=== PATIENT | female | born 1955 | race Hispanic/Latino ===

== ENCOUNTER → 2017-08-18 | Outpatient (CLI) | payer BC ==
[~2017-08-18] MED LIST: CLONAZEPAM0.5 M1 PO; LORAZEPAM0.5 MG PO
--- NOTE | 2017-08-18 12:17 | Diagnostic Imaging Report ---
PROCEDURE: Frontal and lateral views of the chest. COMPARISON: 05/23/09 INDICATIONS: CHEST PAIN FINDINGS: Lines/tubes: None. Lungs: The lungs are well inflated and clear. There is no evidence of pneumonia or pulmonary edema. Pleura: There is no pleural effusion or pneumothorax. Heart and mediastinum: The heart and the mediastinum are normal. Bones: No acute bony abnormality. IMPRESSION: 1. No acute cardiopulmonary disease. Dictated by: Dexter Allen M.D. on 08/18/2017 at 12:17 Electronically approved by: Dexter Allen M.D. on 08/18/2017 at 12:17
--- NOTE | 2017-08-18 12:24 | Diagnostic Imaging Report ---
Lumbar Spine Radiographs: 5 views HISTORY: Pain COMPARISON: None available. DISCUSSION: Some of the osseous structures are partially obscured by stool and bowel gas. There are five non-rib bearing lumbar vertebral bodies. The alignment of the spine is within normal limits. Vertebral body heights are maintained. No displaced fracture or compression deformity is identified. Lower lumbar spine facet arthropathy. There are also degenerative changes of L5-S1. IMPRESSION: No acute radiographic abnormality. Degenerative changes. Signed by: Dr. Dexter Allen MD on 08/18/2017 12:20 PM
--- NOTE | 2017-08-18 12:28 | Diagnostic Imaging Report ---
SACRUM X-RAY - 2 views HISTORY: Pain COMPARISON: None available. FINDINGS: No evidence of acute displaced fracture or dislocation. Degenerative changes of SI joints. There is a large left L5 transverse process, articulating with S1. Soft tissues are unremarkable. IMPRESSION: Large left L5 transverse process, articulating with S1, which can be the cause of back pain. Otherwise, no evidence of acute displaced fracture or dislocation. Degenerative changes of SI joints. Signed by: Dr. Dexter Allen MD on 08/18/2017 12:25 PM
== END ==
LOC: RAD 11:26
PROVIDERS: ATTEND Internal Medicine
DX: M54.5 Low back pain (principal); R07.89 Other chest pain; M51.37 Other intervertebral disc degeneration, lumbosacral region
CPT/HCPCS: 71046; 72110; 72220

== ENCOUNTER → 2018-10-12 | Outpatient (CLI) | payer BC ==
--- NOTE | 2018-10-12 13:52 | Diagnostic Imaging Report ---
EXAM: CHEST 2 VIEWS, PA and lateral DATE: 10/12/2018 Time stamp on exam: 11:49 AM INDICATION: Shortness of breath COMPARISON: None FINDINGS: LINES/TUBES: None LUNGS: No consolidations or edema. PLEURA: No effusions or pneumothorax. HEART AND MEDIASTINUM: Normal size and contour. BONES AND SOFT TISSUES: No acute findings. IMPRESSION: No acute thoracic abnormality. Signed by: Dr. Clinton Montgomery DO on 10/12/2018 1:49 PM
--- NOTE | 2018-10-12 16:50 | Diagnostic Imaging Report ---
Lumbar spine series, 6 views. History: <Pain>. Comparison: <None available>. Discussion: The soft tissues are unremarkable. No lytic or blastic process. The alignment of the lumbar spine is normal. There is no evidence of fracture, spondylolisthesis or spondylolysis. The L5 vertebral body is a transitional vertebrae with partial sacralization. There is disc space narrowing at L4-L5 and L5-S1. IMPRESSION: Transitional L5 vertebral body with disc space narrowing at L4-L5 and L5-S1. Signed by: Dr. Clinton Montgomrey DO on 10/12/2018 4:47 PM
--- NOTE | 2018-10-12 17:02 | Diagnostic Imaging Report ---
Thoracic spine, 3 views. History: Pain Findings: The bones are osteopenic. The alignment of the thoracic spine is normal. There is no evidence of fracture or subluxation. The intervertebral disc spaces are normal limits. No evidence of lytic or sclerotic lesion. The paravertebral soft tissues are unremarkable IMPRESSION: No acute bony abnormality. Signed by: Dr. Clinton Montgomery DO on 10/12/2018 4:59 PM
== END ==
LOC: RAD 11:35
PROVIDERS: ATTEND Internal Medicine
DX: R06.02 Shortness of breath (principal); S23.3XXA Sprain of ligaments of thoracic spine, initial encounter; S33.5XXA Sprain of ligaments of lumbar spine, initial encounter
CPT/HCPCS: 71046; 72070; 72110

== ENCOUNTER → 2019-07-22 | Outpatient (CLI) | payer BC ==
--- NOTE | 2019-07-22 09:24 | Diagnostic Imaging Report ---
Exam: KUB - 2 views Indication: Constipation Comparison: None Findings: Nonobstructive bowel gas pattern. No free air. Normal stool burden in the colon. Phleboliths in the pelvis. No acute osseous injury. Impression: No acute radiographic abnormality. Normal stool burden in the colon. Signed by: Pat Meyers MD on 07/22/2019 9:22 AM
== END ==
LOC: RAD 08:38
PROVIDERS: ATTEND Internal Medicine
DX: K64.8 Other hemorrhoids (principal); K59.09 Other constipation
CPT/HCPCS: 74018

== ENCOUNTER → 2020-10-31 | Outpatient (CLI) | payer OTHER | LOC: RAD 11:57 | PROVIDERS: ATTEND Internal Medicine | DX: J41.0 Simple chronic bronchitis (principal) | CPT/HCPCS: 71046 ==

== ENCOUNTER 2020-12-09 15:40 | Emergency (ER) | payer OTHER ==
[~2020-12-09] VITALS: Ht 152.4 cm; Wt 45.9 kg
[2020-12-09] MEDS ORDERED: METOPROLOL SUCC25 MG PO (16:18)
[2020-12-09] MEDS ORDERED: PRAVASTATIN SOD20 MG (16:18)
[2020-12-09] MEDS ORDERED: FAMOTIDINE 20 MG/2 ML VIAL IV STA (16:36)
[2020-12-09] MEDS ORDERED: KETOROLAC TROMETHAMINE 30 MG/ML VIAL IV STA (16:42)
[2020-12-09] MEDS ORDERED: CILOSTAZOL50 MG PO (16:50)
[2020-12-09] MEDS ORDERED: FAMOTIDINE 20 MG/2 ML VIAL IV ONE (17:10)
[2020-12-09] MEDS ORDERED: KETOROLAC TROMETHAMINE 30 MG/ML VIAL ONE (17:10)
[2020-12-09] MEDS ORDERED: FAMOTIDINE40 MG PO (18:32)
[2020-12-09] MEDS ORDERED: DICLOFENAC SODI75 MG PO (18:45)
[2020-12-09] MEDS ORDERED: CYCLOBENZAPRINE10 MG PO (18:46)
== END 2020-12-09 19:09 | disposition home or self-care (01) ==
LOC: FSED 15:44
DX: R07.9 Chest pain, unspecified (principal); M25.512 Pain in left shoulder; I10 Essential (primary) hypertension; E78.5 Hyperlipidemia, unspecified; I73.9 Peripheral vascular disease, unspecified; R94.31 Abnormal electrocardiogram [ECG] [EKG]
CPT/HCPCS: 71046; 80053; 81003; 82553; 84484; 85025; 93005; 96374; 96375; 99284; J1885

== ENCOUNTER → 2022-12-13 | Outpatient (CLI) | payer MEDICARE ==
[~2022-12-13] MED LIST changes: +CILOSTAZOL50 MG PO; +CYCLOBENZAPRINE10 MG PO; +DICLOFENAC SODI75 MG PO; +FAMOTIDINE40 MG PO; +METOPROLOL SUCC25 MG PO; +PRAVASTATIN SOD20 MG
== END ==
LOC: DX 08:47
PROVIDERS: ATTEND Internal Medicine
DX: M81.0 Age-related osteoporosis without current pathological fracture (principal)
CPT/HCPCS: 77080

== ENCOUNTER → 2024-01-15 | Outpatient (REF) | payer MEDICARE | LOC: US 09:33 | PROVIDERS: ATTEND Internal Medicine | DX: R92.8 Other abnormal and inconclusive findings on diagnostic imaging of breast (principal) ==

== ENCOUNTER → 2024-06-11 | Outpatient (REF) | payer MEDICARE | LOC: RAD 12:36 | PROVIDERS: ATTEND Internal Medicine | DX: M43.02 Spondylolysis, cervical region (principal) | CPT/HCPCS: 72050 ==